=== PATIENT | female | born 1985 | race Caucasian/White ===

== ENCOUNTER 2017-01-19 21:05 | Emergency (ER) | payer OTHER ==
[2017-01-19 21:56] VITALS: RESP 18
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
[2017-01-19 22:54] VITALS: BP 103/87; PULSE 84; TEMP 98.4; O2SAT 97
== END 2017-01-19 22:55 | disposition home or self-care (01) ==
DX: S16.1XXA Strain of muscle, fascia and tendon at neck level, initial encounter (principal); Y04.8XXA Assault by other bodily force, initial encounter; Y92.69 Other specified industrial and construction area as the place of occurrence of the external cause; Y99.0 Civilian activity done for income or pay; Y93.89 Activity, other specified